=== PATIENT | female | born 1940 | race Caucasian/White ===

== ENCOUNTER 2019-05-17 12:00 | Inpatient (IN) | payer MEDICARE, SELFPAY ==
[2019-05-17] VITALS (7 sets, daily range): BP systolic 91–128; BP diastolic 44–58; PULSE 62–68; RESP 16; TEMP 35.9–36.9; O2SAT 95–98; BMI 20.6
--- NOTE | 2019-05-17 12:42 | CT_ITS ---
STUDY: CT ABDOMEN AND PELVIS WITH CONTRAST REASON FOR EXAM: Female, 78 years old. Abdominal pain and nausea. TECHNIQUE: Transaxial images were obtained from the dome of the diaphragm to the symphysis pubis with oral contrast. IV/Oral Isovue 300 75mL was administered. Sagittal and coronal images were reconstructed. Individualized dose optimization techniques were used for this CT. COMPARISON: None. FINDINGS: Partially visualized lower chest: Lung bases unremarkable. Liver: No concerning lesions. Gallbladder and biliary tree: No visible gallstones. No pericholecystic inflammation. No biliary ductal dilation. Pancreas: No pancreatic lesions or inflammation. Spleen: Normal size, no splenic lesions. Adrenal glands: No concerning masses. Kidneys and ureters: Mild right hydronephrosis and hydroureter. Left kidney and left ureter are unremarkable. Bowel: Appendix not identified. No evidence of appendicitis. Contained perforation distal sigmoid colon diverticulitis with a 7.3 cm diameter collection of mostly air and a small amount of fluid in the cul-de-sac, pushing the vagina and uterus anteriorly. No air within the endometrial cavity or vagina to suggest fistula formation. No remote free air. No bowel obstruction. Only mild adjacent inflammation. Urinary bladder: Displaced anteriorly slightly. No wall thickening or stones. Reproductive: Please see bowel section. Vascular: No abdominal aortic aneurysm. Moderate atherosclerosis. Retroperitoneal and peritoneal spaces: No free air. Trace fluid left paracolic gutter. Osseous: No acute osseous abnormality. Degenerative changes. Abdominal and pelvic wall: No concerning findings. CT/Abdomen/Pelvis WITH Contrast IMPRESSION: Contained perforation distal sigmoid colon diverticulitis with a 7.3 cm diameter collection of mostly air and a small amount of fluid in the cul-de-sac, pushing the vagina and uterus anteriorly. No air within the endometrial cavity or vagina to suggest fistula formation. Mild right hydronephrosis and hydroureter due to anterior displacement of the urinary bladder from the pelvic collection. N.B. : The above information has been verbally conveyed by Joon Hamilton to Ney Sofia MD, on 05/17/2019 15:40:11 (ET). Electronically Signed: Joon Hamilton, at 15:41 EDT Tel , Service support ,
[2019-05-17] MEDS: 0.9% Normal Saline 1,000 ML 1000 ML IV (12:53)
[2019-05-17] MEDS: Ondansetron 4 MG/2 ML Vial IV (12:53)
[2019-05-17 13:04] LABS: Absolute Lymphocyte Count 1.61 X10^3/uL (0.83-4.51); Absolute Neutrophil Count 13.5 X10^3/uL (2.0-7.7); Basophil# 0.05 X10^3/uL; Basophil% 0.3 % (0-1); Eosinophil# 0.05 X10^3/uL; Eosinophils% 0.3 % (0-5); Hematocrit 35.6 % (37-47); Hemoglobin 11.2 g/dL (12.0-15.0); Lymphocyte # 1.61 X10^3/ul (4.0); Lymphocyte % 9.7 % (19-41); Mean Corp Hgb Conc 31.5 g/dL (32-36); Mean Corpuscular Hgb 26.4 pg (27.0-32.0); Mean Platelet Vol. 8.5 fl (6.2-12.0); Monocyte% 7.2 % (0-10); NRBC Flagged by Analyzer 0 % (0-5); Neutrophil # 13.47 X10^3/uL (2.7-7.7); Neutrophil % 81.4 % (47-70); Platelet Count 517 K/mm3 (150-450); RBC Distribution Width CV 15.8 % (11.6-14.6); Red Blood Count 4.24 M/mm3 (4.2-5.4); White Blood Count 16.6 K/mm3 (4.4-11.0)
[2019-05-17 13:20] LABS: AST(SGOT) 27 U/L (15-37); Alanine Aminotransfer ALT/SGPT 23 U/L (13-56); Albumin, Serum 2.3 g/dL (3.2-5.0); Alkaline Phosphatase 117 U/L (45-117); Anion Gap 13 (5-15); BUN 53 mg/dL (7-18); Bilirubin, Direct 0.22 mg/dL (0.00-0.30); Calcium,Total 9.7 mg/dL (8.5-10.1); Chloride 99 mmol/L (98-107); Creatinine, Serum 1.83 mg/dL (0.55-1.02); EST Glomerular Filtration Rate 28 mL/min (>60); Est Glom Filt Rate - Afr Amer 34 mL/min (>60); Estimated Creatinine Clearance 20.83 ml/min; Globulin 5.9 g/dL (2.2-4.2); Glucose 100 mg/dL (74-106); Lipase 128 U/L (73-393); Potassium 4.5 mmol/L (3.5-5.1); Protein, Total 8.2 g/dL (6.4-8.2); Sodium Level 134 mmol/L (136-145)
[2019-05-17 13:58] LABS: Mucous, Urine 0 SEEN /hpf (<or=2+); Red Blood Cells-Urine 0 SEEN /hpf (0-5); White Blood Cells 0 SEEN /hpf (0-5)
[2019-05-17 14:00] LABS: Color, Urine Yellow (Yellow); Glucose, Dipstick Normal (Normal); Ketone-Dipstick 5 mg/dl (Negative); Leukocyte Esterase-Dipstick Negative /ul (Negative); Nitrite-Dipstick Negative (Negative); Occult Blood-Urine Negative /ul (Negative); Protein-Dipstick Negative (Negative); Urine Clarity Sl. Cloudy (Clear); Urine Urobilinogen 1 mg/dl (Normal)
[2019-05-17 14:03] LABS: Urine Bilirubin Dipstick 1 mg/dL (Negative)
[2019-05-17 14:11] LABS: Bacteria 1+ /hpf (None Seen); Hyaline Cast 5-10 SEEN /lpf (0-5); Squamous Epithelial Cells - UA 0-5 SEEN /hpf (5-10)
--- NOTE | 2019-05-17 15:24 | ED.DCSUM_ITS ---
- ER Visit Summary Date of Service: 05/17/19 Chief Complaint: Abdominal pain History of Present Illness: The patient is a 78 F who presents the emergency department with the chief complaint that she just does not feel well. She has underlying dementia and so her answers reported are typically different than family's. Is reported to me that she wakes in the morning with a generalized stomachache. States that she is also been having nausea and diarrhea. She has not been eating or drinking as much as normal. She denies any blood in the diarrhea. She cannot tell me when the diarrhea started in relationship to her abdominal pain. She feels globally weak. No fevers. She cannot tell me what her blood pressures typically run. Physical Examination: Heart rate 62 blood pressure 91/52 temperature 96.7 respirations are 16 pulse ox 90% Gen: Appears frail and elderly laying in the bed Head: Normocephalic atraumatic Eyes: Perrl EOMI ENT: TMs clear no rhinorrhea moist mucous membranes Neck: Supple no lymphadenopathy no JVD nontender CVS: Regular rate rhythm no murmurs normal S1-S2 Respiratory: No distress clear to auscultation bilaterally chest nontender Abdomen: Soft mild tenderness to palpation without rebound nondistended normal bowel sounds no masses Back: Nontender Extremity: Nontender no edema Skin: Normal color no rash Neuro: alert orientated ?3 CN II-XII intact normal strength sensation Psych: Normal affect normal mood Test Results: Count elevated 16.6. Hemoglobin 11.2. BUN 53 creatinine 1.83. Liver lipase negative. Urinalysis not showing overt infection. CT of the abdomen pelvis obtained. Demonstrated perforated sigmoid diverticulitis with a large collection of air displacing the vagina. Emergency Department Course and Treatment: Patient received IV fluids. After fluids her blood pressure was improved to 128/58. She received Zosyn and I contacted surgery. Plan is admission into the hospital. Impression: 1. Acute perforated sigmoid diverticulitis This note was generated with Quanlight dictation software. It may contain incorrect words, spelling, and punctuation that were not noted in review of the chart prior to signing ED Disposition - Plan for ED Patient: Referrals: Catrachito Winchester MD [Primary Care Provider] -
--- NOTE | 2019-05-17 16:09 | HP.PCM_ITS ---
History of Present Illness Date of Admission: 05/17/19 The patient is a 78 year old F presented to the ER due to abdominal pain for the last 2 to 3 weeks. Patient lives in assisted living and does have past medical history for dementia. Patient also did have some diarrhea. Patient's white blood count 16.6, CT abdomen pelvis was done which did show about 7.3 cm contained air near the sigmoid colon. Patient is accompanied by her son and daughter, the daughter is POA. Patient has not been eating well for 2 to 3 weeks due to this abdominal pain. Patient has never had a colonoscopy or any abdominal surgeries. Past Medical History Allergies No Known Allergies Allergy (Verified 05/17/19 12:01) Home Medications: Ambulatory Orders Medication Instructions Recorded Atorvastatin Calcium 20 mg PO QHS 05/17/19 Cetirizine HCl [Zyrtec] 10 mg PO DAILY 05/17/19 Cholecalciferol (Vitamin D3) 2,000 unit PO DAILY 05/17/19 [Vitamin D3] Donepezil HCl 5 mg PO QHS 05/17/19 Levothyroxine Sodium 88 mg PO DAILY 05/17/19 Multivitamin with Minerals 1 tab PO DAILY 05/17/19 [Multiple Vitamin] Naproxen Sodium [Aleve] 220 mg PO BID PRN PRN 05/17/19 Olmesartan/Hydrochlorothiazide 1 tab PO DAILY 05/17/19 [Olmesartan-Hctz 20-12.5 mg Tab] Propranolol HCl [Inderal LA (Beta 80 mg PO DAILY 05/17/19 Hellen)] Sertraline HCl 25 mg PO QHS 05/17/19 Vitamin B Complex 1 cap PO DAILY 05/17/19 Surgical History: - - Right arm Psychiatric History: - - Dementia Lives: - - Assisted living Smoking Status: Former smoker Tobacco Use: Non-smoker Review of Systems Constitutional: Denies: Anorexia Cardiovascular: Denies: Chest Pain Respiratory: Denies: Shortness of Breath Gastrointestinal: Reports: Abdominal Pain. Denies: Nausea, Vomiting Genitourinary: Denies: Dysuria Skin: Denies: Rash Psychiatric: Denies: Anxiety Hematologic/ Lymphatic: Denies: Easy Bleeding Unable to obtain accurate/complete ROS d/t: Accuracy difficult due to patient's dementia VTE Information - Inpt Only VTE Present on Admission: Yes VTE Mechan Device Prophylaxis: SCD's VTE Pharm Prophylaxis ordered?: No - Physical Exam General: Alert, Cooperative, No apparent distress Lungs: Normal air movement Cardiovascular: Regular rate Abdomen: Soft, Distended - Mild, Tender - Diffusely mainly in the lower abdomen, voluntary guarding, equivocal rebound. Extremities: No clubbing, No cyanosis, No edema Skin: No rashes Neurological: Cranial nerves II-XII grossly intact Psych/Mental Status: Appropriate Vital Signs Temp Pulse Resp BP Pulse Ox 96.7 F L 65 16 128/58 H 97 05/17/19 12:02 05/17/19 15:55 05/17/19 15:55 05/17/19 15:55 05/17/19 15:55 Oxygen Delivery Method Room Air Weight: 113 lb Body Mass Index (BMI) 20.0 Intake and Output for Last 24 Hours 05/15/19 05/16/19 05/17/19 23:59 23:59 23:59 Intake Total 1000 / 1000 Balance 1000 / 1000 Laboratory Tests Past 24 Hrs 05/17/19 05/17/19 05/17/19 12:56 12:56 13:54 WBC 16.6 H RBC 4.24 Hgb 11.2 L Hct 35.6 L MCV 84.0 MCH 26.4 L MCHC 31.5 L RDW Std Deviation 48.0 H RDW Coeff of Ana 15.8 H Plt Count 517 H MPV 8.5 Immature Gran % (Auto) 1.100 H Neut % (Auto) 81.4 H Lymph % (Auto) 9.7 L [place] % (Auto) 7.2 Eos % (Auto) 0.3 Baso % (Auto) 0.3 Absolute Neuts (auto) 13.5 H Absolute Lymphs (auto) 1.61 Nucleated RBC % 0 Sodium 134 L Potassium 4.5 Chloride 99 Carbon Dioxide 22.0 Anion Gap 13 BUN 53 H Creatinine 1.83 H Estim Creat Clear Calc 20.83 Est GFR (MDRD) Af Amer 34 L Est GFR (MDRD) Non-Af 28 L BUN/Creatinine Ratio 29.0 H Glucose 100 Lactic Acid Calcium 9.7 Total Bilirubin 0.70 Direct Bilirubin 0.22 AST 27 ALT 23 Alkaline Phosphatase 117 Total Protein 8.2 Albumin 2.3 L Globulin 5.9 H Lipase 128 Urine Color Yellow Urine Clarity Sl. Cloudy Urine pH 5.0 Ur Specific [place] 1.020 Urine Protein Negative Urine Glucose (UA) Normal Urine Ketones 5 H Urine Occult Blood Negative Urine Nitrite Negative Urine Bilirubin 1 H Urine Urobilinogen 1 H Ur Leukocyte Esterase Negative Urine RBC 0 SEEN Urine WBC 0 SEEN Ur Squamous Epith Cells 0-5 SEEN Urine Bacteria 1+ Hyaline Casts 5-10 SEEN Urine Mucus 0 SEEN 05/17/19 15:50 WBC RBC Hgb Hct MCV MCH MCHC RDW Std Deviation RDW Coeff of Ana Plt Count MPV Immature Gran % (Auto) Neut % (Auto) Lymph % (Auto) [place] % (Auto) Eos % (Auto) Baso % (Auto) Absolute Neuts (auto) Absolute Lymphs (auto) Nucleated RBC % Sodium Potassium Chloride Carbon Dioxide Anion Gap BUN Creatinine Estim Creat Clear Calc Est GFR (MDRD) Af Amer Est GFR (MDRD) Non-Af BUN/Creatinine Ratio Glucose Lactic Acid Pending Calcium Total Bilirubin Direct Bilirubin AST ALT Alkaline Phosphatase Total Protein Albumin Globulin Lipase Urine Color Urine Clarity Urine pH Ur Specific [place] Urine Protein Urine Glucose (UA) Urine Ketones Urine Occult Blood Urine Nitrite Urine Bilirubin Urine Urobilinogen Ur Leukocyte Esterase Urine RBC Urine WBC Ur Squamous Epith Cells Urine Bacteria Hyaline Casts Urine Mucus Assessment/Plan 78-year-old female with perforated diverticulitis and contained 7.3 cm area of air in the pelvis Discussed with patient and her son and daughter due to the large amount of contained air in the pelvis this would likely not resolve without surgery. Patient and her family were agreeable with an exploratory laparoscopy, possible laparotomy, possible bowel resection, possible stoma. Due to patient's history of not eating well for about 2 to 3 weeks would likely be doing an in colostomy as anastomosis may have a higher likelihood of leak. Did discuss risk of the procedure including but not limited to bleeding, infection, injury to another organ (small bowel, ureter, etc.), and anesthesia. Did also discuss if there is any concern about exposure after surgery she could possibly be intubated overnight at anesthesia's discretion but again this would plan to be temporary. Patient is normally a DNR CCA however did discuss with the son who is the POA that for the time of surgery she would need to be a full code and then she can go back to be in a DNR CCA. They were agreeable with plan. She is currently getting IV fluids as well as Zosyn IV in the ER. Katty Powers M.D. Pager: [phone] [facility] [address] [place] [address], [facility], [address] [place] [address] Office: [phone]
[2019-05-17 16:30] LABS: Lactic Acid 1.4 mmol/L (0.4-2.0)
[2019-05-17 16:42] LABS: Prealbumin 7.1 mg/dL (20.0-40.0)
--- NOTE | 2019-05-17 17:07 | ED.RN ---
pt was a difficult cath due to anatomy. pt required multiple attempts. third attempt was completed by humble hyatt rn. cath was successful. 3 separate catheters were used during attempts. humble hyatt rn [id number]
[2019-05-17] MEDS: 0.9% Normal Saline 1,000 ML 999 ML IV (17:11)
--- NOTE | 2019-05-17 17:18 | EKG12_ITS ---
Test Reason : PREOP Blood Pressure : / mmHG Vent. Rate : 063 BPM Atrial Rate : 063 BPM P-R Int : 164 ms QRS Dur : 086 ms QT Int : 450 ms P-R-T Axes : 052 -19 052 degrees QTc Int : 460 ms Normal sinus rhythm [place] Confirmed by WILMAR PEREZ, VIKAS ([id number]), writer editor PEGGY MENDIOLA ([id number]) on 05/19/2019 1:36:48 PM Referred By: BEREKET Confirmed By:VIKAS URBAN MD
[2019-05-17] MEDS: 0.9% Normal Saline 1,000 ML 150 ML IV (19:40)
[2019-05-18] MEDS: 0.9% Normal Saline 1,000 ML 150 ML IV (02:06)
[2019-05-18 02:15] VITALS: BP 106/51; PULSE 62; RESP 16; TEMP 36.7; O2SAT 96
[2019-05-18 03:57] VITALS: PULSE 61
[2019-05-18 06:00] LABS: Absolute Lymphocyte Count 1.76 X10^3/uL (0.83-4.51); Basophil# 0.06 X10^3/uL; Basophil% 0.3 % (0-1); Eosinophil# 0.02 X10^3/uL; Eosinophils% 0.1 % (0-5); Hematocrit 28.6 % (37-47); Hemoglobin 8.9 g/dL (12.0-15.0); Lymphocyte # 1.76 X10^3/ul (4.0); Lymphocyte % 9.7 % (19-41); Mean Corp Hgb Conc 31.1 g/dL (32-36); Mean Corpuscular Hgb 26.5 pg (27.0-32.0); Mean Corpuscular Volume 85.1 fL (81-99); Mean Platelet Vol. 8.4 fl (6.2-12.0); Monocyte# 1.19 X10^3/uL; Monocyte% 6.5 % (0-10); NRBC Flagged by Analyzer 0 % (0-5); Neutrophil # 14.99 X10^3/uL (2.7-7.7); Neutrophil % 82.5 % (47-70); POSITIVE MORPHOLOGY YES; Platelet Count 430 K/mm3 (150-450); RBC Distribution Width CV 15.8 % (11.6-14.6); RBC Distribution Width SD 49.1 fl (35.1-43.9); Red Blood Count 3.36 M/mm3 (4.2-5.4); White Blood Count 18.2 K/mm3 (4.4-11.0)
[2019-05-18 06:05] LABS: Differential Indicated SCAN CRITERIA MET
[2019-05-18 06:07] LABS: International Normalized Ratio 1.4; Prothrombin Time (Protime)PT. 16.5 SECONDS (11.7-14.9)
[2019-05-18 06:08] LABS: Partial Thromboplast Time 33.2 Seconds (24.1-36.2)
[2019-05-18 06:29] LABS: Anisocytosis RARE; Hypochromasia RARE; Platelet Estimate SLT INC (ADEQ); Red Cell Morphology N CHROM NORMAL (NORM C&C)
[2019-05-18 06:33] LABS: Anion Gap 8 (5-15); BUN 34 mg/dL (7-18); Calcium,Total 8.3 mg/dL (8.5-10.1); Chloride 112 mmol/L (98-107); Creatinine, Serum 1.31 mg/dL (0.55-1.02); EST Glomerular Filtration Rate 42 mL/min (>60); Est Glom Filt Rate - Afr Amer 51 mL/min (>60); Estimated Creatinine Clearance 28.44 ml/min; Glucose 70 mg/dL (74-106); Potassium 3.8 mmol/L (3.5-5.1); Sodium Level 140 mmol/L (136-145)
--- NOTE | 2019-05-18 06:54 | PN.SURG_ITS ---
Patient Problems: Active and Suspected Problems (Last Updated 05/18/19 @ 06:59 by Katty Powers MD) Dementia (Acute) Hypothyroid (Acute) Hyperlipemia (Acute) Subjective: Patient denies abdominal pain lying in bed, still having watery stools, C. difficile was negative, white blood count up to 18.2 patient is on Zosyn IV, good urine output overnight - Physical Exam General: Alert, Cooperative, No apparent distress Lungs: Normal air movement Cardiovascular: Regular rate Abdomen: Soft, Distended - Mild, Tender - Lower abdomen, occasional voluntary guarding no rebound Extremities: No edema Neurological: Cranial nerves II-XII grossly intact Psych/Mental Status: Normal Affect Vital Signs Temp Pulse Resp BP Pulse Ox 98.1 F 61 16 106/51 L 96 05/18/19 02:15 05/18/19 03:57 05/18/19 02:15 05/18/19 02:15 05/18/19 02:15 Oxygen Delivery Method Room Air Weight: 112 lb 10.499 oz Body Mass Index (BMI) 20.6 Intake and Output for Last 24 Hours 05/16/19 05/17/19 05/18/19 23:59 23:59 23:59 Intake Total 2857.5 / 2857.5 367.5 / 367.5 Output Total 475 / 475 325 / 325 Balance 2382.5 / 2382.5 42.5 / 42.5 Microbiology Past 72 Hours 05/17/19 14:50 C. difficile DNA Amplification - Final Stool Laboratory Tests Past 24 Hrs 05/17/19 05/17/19 05/17/19 12:56 12:56 12:56 WBC 16.6 H RBC 4.24 Hgb 11.2 L Hct 35.6 L MCV 84.0 MCH 26.4 L MCHC 31.5 L RDW Std Deviation 48.0 H RDW Coeff of Ana 15.8 H Plt Count 517 H MPV 8.5 Immature Gran % (Auto) 1.100 H Neut % (Auto) 81.4 H Lymph % (Auto) 9.7 L [place] % (Auto) 7.2 Eos % (Auto) 0.3 Baso % (Auto) 0.3 Absolute Neuts (auto) 13.5 H Absolute Lymphs (auto) 1.61 Nucleated RBC % 0 [address] Review Platelet Estimate RBC Morphology Hypochromasia Anisocytosis PT INR APTT Sodium 134 L Potassium 4.5 Chloride 99 Carbon Dioxide 22.0 Anion Gap 13 BUN 53 H Creatinine 1.83 H Estim Creat Clear Calc 20.83 Est GFR (MDRD) Af Amer 34 L Est GFR (MDRD) Non-Af 28 L BUN/Creatinine Ratio 29.0 H Glucose 100 Lactic Acid Calcium 9.7 Total Bilirubin 0.70 Direct Bilirubin 0.22 AST 27 ALT 23 Alkaline Phosphatase 117 Total Protein 8.2 Albumin 2.3 L Globulin 5.9 H Prealbumin 7.1 L Lipase 128 Urine Color Urine Clarity Urine pH Ur Specific [place] Urine Protein Urine Glucose (UA) Urine Ketones Urine Occult Blood Urine Nitrite Urine Bilirubin Urine Urobilinogen Ur Leukocyte Esterase Urine RBC Urine WBC Ur Squamous Epith Cells Urine Bacteria Hyaline Casts Urine Mucus 05/17/19 05/17/19 05/18/19 13:54 15:50 05:34 WBC 18.2 H RBC 3.36 L Hgb 8.9 L Hct 28.6 L MCV 85.1 MCH 26.5 L MCHC 31.1 L RDW Std Deviation 49.1 H RDW Coeff of Ana 15.8 H Plt Count 430 MPV 8.4 Immature Gran % (Auto) 0.900 Neut % (Auto) 82.5 H Lymph % (Auto) 9.7 L [place] % (Auto) 6.5 Eos % (Auto) 0.1 Baso % (Auto) 0.3 Absolute Neuts (auto) 15.0 H Absolute Lymphs (auto) 1.76 Nucleated RBC % 0 [address] Review May foll Platelet Estimate SLT INC RBC Morphology N CHROM Hypochromasia RARE Anisocytosis RARE PT INR APTT Sodium Potassium Chloride Carbon Dioxide Anion Gap BUN Creatinine Estim Creat Clear Calc Est GFR (MDRD) Af Amer Est GFR (MDRD) Non-Af BUN/Creatinine Ratio Glucose Lactic Acid 1.4 Calcium Total Bilirubin Direct Bilirubin AST ALT Alkaline Phosphatase Total Protein Albumin Globulin Prealbumin Lipase Urine Color Yellow Urine Clarity Sl. Cloudy Urine pH 5.0 Ur Specific [place] 1.020 Urine Protein Negative Urine Glucose (UA) Normal Urine Ketones 5 H Urine Occult Blood Negative Urine Nitrite Negative Urine Bilirubin 1 H Urine Urobilinogen 1 H Ur Leukocyte Esterase Negative Urine RBC 0 SEEN Urine WBC 0 SEEN Ur Squamous Epith Cells 0-5 SEEN Urine Bacteria 1+ Hyaline Casts 5-10 SEEN Urine Mucus 0 SEEN 05/18/19 05/18/19 05:34 05:34 WBC RBC Hgb Hct MCV MCH MCHC RDW Std Deviation RDW Coeff of Ana Plt Count MPV Immature Gran % (Auto) Neut % (Auto) Lymph % (Auto) [place] % (Auto) Eos % (Auto) Baso % (Auto) Absolute Neuts (auto) Absolute Lymphs (auto) Nucleated RBC % Diff Path Review Platelet Estimate RBC Morphology Hypochromasia Anisocytosis PT 16.5 H INR 1.4 APTT 33.2 Sodium 140 Potassium 3.8 Chloride 112 H Carbon Dioxide 20.0 L Anion Gap 8 BUN 34 H Creatinine 1.31 H Estim Creat Clear Calc 28.44 Est GFR (MDRD) Af Amer 51 L Est GFR (MDRD) Non-Af 42 L BUN/Creatinine Ratio 26.0 H Glucose 70 L Lactic Acid Calcium 8.3 L Total Bilirubin Direct Bilirubin AST ALT Alkaline Phosphatase Total Protein Albumin Globulin Prealbumin Lipase Urine Color Urine Clarity Urine pH Ur Specific [place] Urine Protein Urine Glucose (UA) Urine Ketones Urine Occult Blood Urine Nitrite Urine Bilirubin Urine Urobilinogen Ur Leukocyte Esterase Urine RBC Urine WBC Ur Squamous Epith Cells Urine Bacteria Hyaline Casts Urine Mucus Medical Necessity - Tobacco Use Smoking Status: Former smoker Tobacco Use: Cigarettes Assessment/Plan All Active Problems (Last Updated 05/18/19 @ 06:59 by Katty Powers MD) Dementia (Acute) Hypothyroid (Acute) Hyperlipemia (Acute) 78-year-old female with perforated diverticulitis versus rectum and contained 7.3 cm area of air in the pelvis Patient will go to radiology to get CT pelvis with limited rectal contrast for better look at the air pocket/abscess with plans to place a drain. Patient again is still only tender in the lower abdomen but may be actually a little better today than yesterday. Leukocytosis 18.2 continue IV Zosyn. Bagley for I's and O's Severe malnutrition depending on CT pelvis and how quickly I think patient may be able to eat p.o. could possibly be placing a PICC line for TPN if she will not be able to eat soon. Addendum: CT with barium contrast was done the radiologist thought that that was just dilated sigmoid colon with colitis even of the descending colon and sigmoid; however I still question whether that a rectal abscess will have the radiologist do a Gastrografin enema to better define see if the patient would benefit from a drain. If it still appears to be an abscess discussed with the family of possible transfer for a second opinion and IR drainage as this would be too low for me to surgically evacuate since that is below the peritoneal reflection. The son stated he would prefer to be transferred to [place] if they needed. Katty Powers M.D. Pager: [phone] [facility] [address] [place] [address], [facility], [address] [place] [address] Office: [phone] Code Visit Inpatient E&M: 62198 Subs Hosp L1
[2019-05-18 06:55] VITALS: PULSE 64
[2019-05-18 08:45] VITALS: BP 104/48; PULSE 60; RESP 18; TEMP 36.5; O2SAT 97
--- NOTE | 2019-05-18 09:00 | CT_ITS ---
STUDY: CT PELVIS WITHOUT CONTRAST REASON FOR EXAM: Female, 78 years old. Abscess RADIATION DOSAGE (If Supplied By Facility): CTDIvol = ( 10.61 ) mGy, DLP = ( 986.17 ) mGycm TECHNIQUE: Transaxial imaging of the pelvis was performed with oral contrast, , with rectal contrast, and without intravenous administration of contrast material. Individualized dose optimization techniques were used for this CT. COMPARISON: 05/17/2019 FINDINGS: Bagley catheter within the bladder. Normal visualized small intestine. Multiple diverticula throughout the sigmoid colon with diffuse wall thickening worrisome for diverticulitis. Within the cul-de-sac there is a 6.2 x 7.5 cm collection of air or stool and rectal contrast worrisome for perforation with abscess. There is no pelvic fluid. There is no pelvic mass lesion or lymphadenopathy. Normal visualized pelvic arteries. Normal abdominal wall. Normal osseous structures. CT/Pelvis without IV Contrast IMPRESSION: Suspect diverticulitis with perforation with a 6.2 x 7.5 cm abscess in the rectovesical space containing gas, stool, and leaked rectal contrast. Electronically Signed: Murali Alexander MD at 10:43 EDT Tel , Service support ,
--- NOTE | 2019-05-18 09:19 | RAD_ITS ---
EXAM DESCRIPTION: Limited Gastroview barium enema CLINICAL HISTORY: 78 years Female, pelvic pain marked diarrhea, questionable pericolonic abscess COMPARISON: Most recent CT scan of the pelvis obtained on 05/18/2019 TECHNIQUE: 220 seconds of fluoroscopy time was utilized ascending 0.56 mg was utilized during the study. FINDINGS: A limited Gastrografin enema was performed with particular attention to the sigmoid portion colon. Comparison is made to the recent CT scan of the pelvis obtained on 05/18/2019. Gastroview was instilled into the rectum and passed up into the mid sigmoid portion of the colon. At that point, there is a collection of gas seen which is surrounded by the sigmoid portion colon. This gas pocket partly fills with contrast this gas pocket is of uncertain etiology but probably represents a portion of the tortuous sigmoid colon. A pericolonic abscess is felt to be a less likely diagnostic possibility. This Gastroview enema was performed with Dr. Powers in attendance and the case was discussed with her. Multiple diverticula were noted in the sigmoid portion colon. RAD/Barium Enema No Air Cont IMPRESSION: A Limited Gastroview enema was performed up to the mid descending colon showing extensive diverticulosis. A gas collection is noted within the mid sigmoid which probably represents a tortuous gas filled loop of sigmoid colon, however, a pericolonic abscess cannot completely excluded. Electronically Signed: Tono Caro, at 12:36 EDT Tel , Service support ,
[2019-05-18 10:12] LABS: Pathologist Review Reviewed
--- NOTE | 2019-05-18 11:09 | PN_ITS ---
Progress Note Patient did undergo Gastrografin enema which again that air pocket did not appear to fill with contrast. Previous CT of the pelvis with rectal contrast was read by an outside radiologist as a possible rectal abscess with stool and air in the recto vesicle space. Our radiologist Dr. Caro is unsure if this is really an abscess or dilated sigmoid colon he would not want to place a drain to discuss this with family that I still think this is likely an abscess and I would not think she would do well if able to drain it through the abdomen as she would likely get peritonitis and right now seems to be walled off from the abdomen being below the peritoneal reflection. Family requests transfer to [facility] for a second opinion for a drain. Discussed with family they did state that if she did need surgery and a colostomy was likely they are not sure that this time they would proceed with that. Did send the images over to [facility] for them to review as well.
--- NOTE | 2019-05-18 11:11 | PCM.DC.SUM ---
Discharge Date and Diagnosis - Problem List Patient Problems: Active and Suspected Problems (Last Updated 05/18/19 @ 06:59 by Katty Powers MD) Dementia (Acute) Hypothyroid (Acute) Hyperlipemia (Acute) Date of Admission: 05/17/19 Date of Discharge: 05/18/19 - Primary Discharge Diagnosis Active and Suspected Problems (Last Updated 05/18/19 @ 06:59 by Katty Powers MD) Perforated diverticulitis below the peritoneal reflection with abscess Leukocytosis Dementia (Acute) Hypothyroid (Acute) Hyperlipemia (Acute) - Secondary Discharge Diagnosis Chronic Problems (Last Updated 05/18/19 @ 06:59 by Katty Powers MD) HTN (hypertension) (Chronic) Hyperlipidemia Dementia Hospital Course and Treatment Imaging Results: 05/18/19 09:00 Pelvis without IV Contrast [CT] Urgent 05/18/19 09:19 Barium Enema No Air Cont [RAD] Timed Operations: - - Right forearm, clavicle surgery Procedures: None Summary of Care Provided: The patient is a 78 year old F patient was admitted due to likely rectal abscess from possible diverticulitis. Patient has been having abdominal pain for last 2 to 3 weeks and has not been eating well. She is malnourished with prealbumin of 7.1 and albumin of 2.3. Patient CT abdomen pelvis did show a contained air pockets below the peritoneal reflection about 7.3 cm. Patient has been having watery diarrhea that she was checked for C. difficile which was negative. Patient's heart rate has remained in the 60s she is on beta-hellen which she has not gotten today due to systolic blood pressure being 106 currently. Patient has been making good urine with the [place]. His white blood count was 16.6 is up to 18.2 and she has been on IV Zosyn 3.375 g IV every 8 hours. Patient has had repeat CT pelvis with rectal contrast which was called a rectal abscess with stool and air in the rectal vesicle space; however discussing with our radiologist is unsure if this is excellent abscess or dilated sigmoid colon and would not want to place a drain. Initially were talking about possible transverse for a second opinion from interventional radiologist however since there is contrast in the drain this may not completely resolve. Patient and family are not interested in a colostomy and have decided to go with hospice. Patient Problems: Active and Suspected Problems (Last Updated 05/18/19 @ 06:59 by Katty Powers MD) Dementia (Acute) Hypothyroid (Acute) Hyperlipemia (Acute) - Physical Exam General: Alert, Cooperative, No apparent distress Lungs: Normal air movement Cardiovascular: Regular rate Abdomen: Soft, Distended - Mild, Tender - Mainly lower abdomen on the left, occasional voluntary guarding no rebound Extremities: No clubbing, No cyanosis, No edema Psych/Mental Status: Normal Affect Vital Signs Temp Pulse Resp BP Pulse Ox 97.7 F L 60 18 104/48 L 97 05/18/19 08:45 05/18/19 08:45 05/18/19 08:45 05/18/19 08:45 05/18/19 08:45 Oxygen Delivery Method Room Air Weight: 112 lb 10.499 oz Body Mass Index (BMI) 20.6 Intake and Output for Last 24 Hours 05/16/19 05/17/19 05/18/19 23:59 23:59 23:59 Intake Total 2857.5 / 2857.5 1390.21 / 1390.21 Output Total 475 / 475 325 / 325 Balance 2382.5 / 2382.5 1065.21 / 1065.21 Microbiology Past 72 Hours 05/17/19 14:50 C. difficile DNA Amplification - Final Stool Laboratory Tests Past 24 Hrs 05/17/19 05/17/19 05/17/19 12:56 12:56 12:56 WBC 16.6 H RBC 4.24 Hgb 11.2 L Hct 35.6 L MCV 84.0 MCH 26.4 L MCHC 31.5 L RDW Std Deviation 48.0 H RDW Coeff of Ana 15.8 H Plt Count 517 H MPV 8.5 Immature Gran % (Auto) 1.100 H Neut % (Auto) 81.4 H Lymph % (Auto) 9.7 L Loving % (Auto) 7.2 Eos % (Auto) 0.3 Baso % (Auto) 0.3 Absolute Neuts (auto) 13.5 H Absolute Lymphs (auto) 1.61 Nucleated RBC % 0 Diff Path Review Platelet Estimate RBC Morphology Hypochromasia Anisocytosis PT INR APTT Sodium 134 L Potassium 4.5 Chloride 99 Carbon Dioxide 22.0 Anion Gap 13 BUN 53 H Creatinine 1.83 H Estim Creat Clear Calc 20.83 Est GFR (MDRD) Af Amer 34 L Est GFR (MDRD) Non-Af 28 L BUN/Creatinine Ratio 29.0 H Glucose 100 Lactic Acid Calcium 9.7 Total Bilirubin 0.70 Direct Bilirubin 0.22 AST 27 ALT 23 Alkaline Phosphatase 117 Total Protein 8.2 Albumin 2.3 L Globulin 5.9 H Prealbumin 7.1 L Lipase 128 Urine Color Urine Clarity Urine pH Ur Specific [place] Urine Protein Urine Glucose (UA) Urine Ketones Urine Occult Blood Urine Nitrite Urine Bilirubin Urine Urobilinogen Ur Leukocyte Esterase Urine RBC Urine WBC Ur Squamous Epith Cells Urine Bacteria Hyaline Casts Urine Mucus 05/17/19 05/17/19 05/18/19 13:54 15:50 05:34 WBC 18.2 H RBC 3.36 L Hgb 8.9 L Hct 28.6 L MCV 85.1 MCH 26.5 L MCHC 31.1 L RDW Std Deviation 49.1 H RDW Coeff of Ana 15.8 H Plt Count 430 MPV 8.4 Immature Gran % (Auto) 0.900 Neut % (Auto) 82.5 H Lymph % (Auto) 9.7 L Loving % (Auto) 6.5 Eos % (Auto) 0.1 Baso % (Auto) 0.3 Absolute Neuts (auto) 15.0 H Absolute Lymphs (auto) 1.76 Nucleated RBC % 0 [address] Review Reviewed Platelet Estimate SLT INC RBC Morphology N CHROM Hypochromasia RARE Anisocytosis RARE PT INR APTT Sodium Potassium Chloride Carbon Dioxide Anion Gap BUN Creatinine Estim Creat Clear Calc Est GFR (MDRD) Af Amer Est GFR (MDRD) Non-Af BUN/Creatinine Ratio Glucose Lactic Acid 1.4 Calcium Total Bilirubin Direct Bilirubin AST ALT Alkaline Phosphatase Total Protein Albumin Globulin Prealbumin Lipase Urine Color Yellow Urine Clarity Sl. Cloudy Urine pH 5.0 Ur Specific [place] 1.020 Urine Protein Negative Urine Glucose (UA) Normal Urine Ketones 5 H Urine Occult Blood Negative Urine Nitrite Negative Urine Bilirubin 1 H Urine Urobilinogen 1 H Ur Leukocyte Esterase Negative Urine RBC 0 SEEN Urine WBC 0 SEEN Ur Squamous Epith Cells 0-5 SEEN Urine Bacteria 1+ Hyaline Casts 5-10 SEEN Urine Mucus 0 SEEN 05/18/19 05/18/19 05:34 05:34 WBC RBC Hgb Hct MCV MCH MCHC RDW Std Deviation RDW Coeff of Ana Plt Count MPV Immature Gran % (Auto) Neut % (Auto) Lymph % (Auto) Loving % (Auto) Eos % (Auto) Baso % (Auto) Absolute Neuts (auto) Absolute Lymphs (auto) Nucleated RBC % Diff Path Review Platelet Estimate RBC Morphology Hypochromasia Anisocytosis PT 16.5 H INR 1.4 APTT 33.2 Sodium 140 Potassium 3.8 Chloride 112 H Carbon Dioxide 20.0 L Anion Gap 8 BUN 34 H Creatinine 1.31 H Estim Creat Clear Calc 28.44 Est GFR (MDRD) Af Amer 51 L Est GFR (MDRD) Non-Af 42 L BUN/Creatinine Ratio 26.0 H Glucose 70 L Lactic Acid Calcium 8.3 L Total Bilirubin Direct Bilirubin AST ALT Alkaline Phosphatase Total Protein Albumin Globulin Prealbumin Lipase Urine Color Urine Clarity Urine pH Ur Specific [place] Urine Protein Urine Glucose (UA) Urine Ketones Urine Occult Blood Urine Nitrite Urine Bilirubin Urine Urobilinogen Ur Leukocyte Esterase Urine RBC Urine WBC Ur Squamous Epith Cells Urine Bacteria Hyaline Casts Urine Mucus Home Medications: Medications to take at Discharge Atorvastatin Calcium 20 mg PO QHS 05/17/19 Cetirizine HCl [Zyrtec] 10 mg PO DAILY 05/17/19 Cholecalciferol (Vitamin D3) [Vitamin D3] 2,000 unit PO DAILY 05/17/19 Donepezil HCl 5 mg PO QHS 05/17/19 Levothyroxine Sodium 88 mg PO DAILY 05/17/19 Multivitamin with Minerals [Multiple Vitamin] 1 tab PO DAILY 05/17/19 Naproxen Sodium [Aleve] 220 mg PO BID PRN PRN 05/17/19 Olmesartan/Hydrochlorothiazide [Olmesartan-Hctz 20-12.5 mg Tab] 1 tab PO DAILY 05/17/19 Propranolol HCl [Inderal [place] (Beta Hellen)] 80 mg PO DAILY 05/17/19 Sertraline HCl 25 mg PO QHS 05/17/19 Vitamin B Complex 1 cap PO DAILY 05/17/19 Primary Care Physician: Catrachito Winchester MD [Primary Care Provider] - Additional Instructions: All further care directed by hospice Disposition: Home with Hospice Minutes spent on discharge:: 30 Patient Condition:: Guarded Medical Necessity - Tobacco Use Smoking Status: Former smoker Tobacco Use: Cigarettes Meaningful Use Info Meaningful Use Diagnoses (Choose all that apply): None applicable Code Visit Inpatient E&M: 67651 Disch Hosp
--- NOTE | 2019-05-18 11:27 | CASEMGMT ---
Patient is from [facility]. SW will follow and assess for safe d/c plan. SW will also keep in touch with [facility] regarding patient's stay at [facility]. Marifer GANN
--- NOTE | 2019-05-18 11:51 | CASEMGMT ---
Per physician and RN patient's family would like patient to go back to assisted living on [facility] through [facility]. ELMER met with patient's daughter, Ekaterina and son, Jd. They confirmed they would like [facility] as patient's daughter works for that agency and they are contracted with [facility]. ELMER called [facility] and made a referral to [facility]. She will call ELMER when she has made arrangements. ELMER faxed referral. [facility] phone: [phone] and fax: [phone]. ELMER also called [facility] and spoke with Oralia. ELMER let her know the plan is for patient to return to [place] on [facility]. ELMER also faxed them updates. Plan: d/c back to [facility] [place] with a consult to [facility]. Marifer SCHREIBER MSW
--- NOTE | 2019-05-18 12:54 | CASEMGMT ---
Addendum entered by Marifer Amin 05/18/19 13:38: ELMER notified [facility] of patient's plans to go home with her daughter on [facility]. Marifer GANN Addendum entered by Marifer Amin 05/18/19 13:23: ELMER received a call from Anaya at [facility]. She said that hospital physician will need to write prescriptions for pain medicine. She said family is not meeting with Hospice until tomorrow. She said they are ordering equipment to be delivered today and they will admit her to Hospice tomorrow. ELMER let RN and head charger know this information. Plan: Home with patient's daughter. [facility] will meet with patient and family tomorrow. Marifer GANN Original Note: [facility]. She said patient was walking before. ELMER spoke with patient's daughter and she said patient wants to go home with her To . She asked ELMER to call her truck driver supervisor Anaya at [facility]. She said she has already talked with Sai and she is getting a bed delivered etc. ELMER called [facility] and Anaya was in a meeting. ELMER left ELMER's name and number and she will call ELMER back. Still waiting on [facility] to call ELMER back regarding an appt time. Marifer GANN
[2019-05-18 14:45] VITALS: BP 105/54; PULSE 65; RESP 18; TEMP 36.8; O2SAT 97
--- NOTE | 2019-05-18 14:45 | CHAPLAIN ---
Type of Pastoral Visit _x__ Initial Visit ___ Follow-up Visit ___ On-call Visit ___ General Patient Visit ___ Spiritual Assessment ___ Family Conference ___ Bereavement ___ Rapid Response ___ Code Blue ___ Other (describe below) Pastoral Care Referral From _x__ Patient _x__ Family ___ Nurse ___ Physician ___ Hogshead Inspector ___ Fractionating Still Operator ___ Other (describe below) Sacrament/Intervention _x__ Active listening ___ Anointing ___ Mandaeism ___ Bereavement ___ Communion _x__ Jessika exploration ___ _x__ Life review _x__ Prayer ___ Reconciliation ___ Sacrament of Sick _x__ Supportive presence ___ Wedding ___ Other (describe below) Pastoral Comments referral by family members; met with family members first before entering room; daughter gives information about health condition and recommendation for hospice; family is well versed in hospice care and daughter is a hospice community liaison; family members state that they are people of jessika as is the patient; family is not concerned about pt's eternal life but request this in store marketer to talk with pt about her feelings and desires to affirm what she has said to them in the past; pt presents with casual concern and admits that she does not have long to live, maybe weeks; pt states that she is content and that this is really up to God anyway; pt welcomes prayers and says you pray whatever you want to pray; pt says that she has a great family; pt says she has no further needs
== END 2019-05-18 15:37 | disposition home or self-care (01) | DRG 392 ==
LOC: ED 13:13 → SDC 16:27 → PCU 16:28 → SDC 17:56
PROVIDERS: Admitting Provider Surgery; Emergency Provider Emergency Medicine; Family Provider Family Medicine; PCP Family Medicine; Visit Provider Surgery
DX: K57.20 Diverticulitis of large intestine with perforation and abscess without bleeding (principal); N17.9 Acute kidney failure, unspecified; D64.9 Anemia, unspecified; D72.829 Elevated white blood cell count, unspecified; F03.90 Unspecified dementia, unspecified severity, without behavioral disturbance, psychotic disturbance, mood disturbance, and anxiety; E03.9 Hypothyroidism, unspecified; E78.5 Hyperlipidemia, unspecified; I10 Essential (primary) hypertension; E86.0 Dehydration; Z79.899 Other long term (current) drug therapy; Z87.891 Personal history of nicotine dependence
CPT/HCPCS: 36415; 72192; 74177; 74270; 80048; 80076; 81001; 83605; 83690; 84134; 85025; 85610; 85730; 87493; 87506; 93005; 97802; 99285; J7030; J7040; P9612; Q9967; A4216; J2405